=== PATIENT | male | born 1955 | race Caucasian/White ===

== ENCOUNTER 2021-04-27 12:36 | Day surgery (SDC) | payer OTHER ==
[~2021-04-27] VITALS: Ht 177.8 cm; Wt 74.6 kg
[2021-04-27 13:26] VITALS: BP 162/103
[2021-04-27] MEDS ORDERED: CHLORHEXIDINE 15 ML UDC ONE (13:29)
[2021-04-27] MEDS ORDERED: CHLORHEXIDINE 15 ML UDC PO ONE (13:30)
[2021-04-27] MEDS ORDERED: LACTATED RINGERS 1,000 ML IV SCH (13:30)
[2021-04-27 13:50] VITALS: BP 155/98
[2021-04-27] MEDS ORDERED: MIDAZOLAM 1 MG/ML, 2ML ONE (14:19)
[2021-04-27] MEDS ORDERED: FENTANYL PF 100 MCG/2ML ONE (14:19)
[2021-04-27] MEDS ORDERED: ONDANSETRON 2MG/ML, 2ML ONE (14:32)
[2021-04-27] MEDS ORDERED: SUCCINYLCHOLINE 20 MG/ML, 10ML ONE (14:32)
[2021-04-27] MEDS ORDERED: DEXAMETHASONE 4 MG/ML, 1ML ONE (14:32)
[2021-04-27] MEDS ORDERED: PHENYLEPHRINE 10 MG/ML ONE (14:32)
[2021-04-27] MEDS ORDERED: ROCURONIUM 10 MG/ML,10ML ONE (14:32)
[2021-04-27] MEDS ORDERED: PROPOFOL 10 MG/ML, 50ML ONE (14:32)
[2021-04-27] MEDS ORDERED: SUGAMMADEX 200 MG/2 ML IVPush ONE (14:32)
[2021-04-27] MEDS ORDERED: HYDROmorphone 1 MG/ML, 1ML INJ ONE (14:41)
[2021-04-27] MEDS ORDERED: DIAZEPAM 5 MG/ML, 2ML IVPush PRN (15:00)
[2021-04-27] MEDS ORDERED: LABETALOL 5MG/ML, 20ML IV PRN (15:00)
[2021-04-27] MEDS ORDERED: HALOPERIDOL 5 MG/ML IV PRN (15:00)
[2021-04-27] MEDS ORDERED: ACETAMINOPHEN 325 MG TABLET PO PRN (15:00)
[2021-04-27] MEDS ORDERED: OXYcodone 5 MG/5 ML ORAL.SOL UDC PO PRN (15:00)
[2021-04-27] MEDS ORDERED: METOCLOPRAMIDE 5 MG/ML, 2ML IVPush PRN (15:00)
[2021-04-27] MEDS ORDERED: METOPROLOL 1 MG/ML, 5ML IV PRN (15:00)
[2021-04-27] MEDS ORDERED: PROMETHAZINE 25 MG/ML, 1ML IVPush PRN (15:00)
[2021-04-27] MEDS ORDERED: DIPHENHYDRAMINE 50 MG/ML, 1ML IVPush PRN (15:00)
[2021-04-27] MEDS ORDERED: ONDANSETRON 2MG/ML, 2ML IVPush PRN (15:00)
[2021-04-27] MEDS ORDERED: MEPERIDINE/PF 25MG/0.5ML IVPush PRN (15:00)
[2021-04-27] MEDS ORDERED: hydrALAzine 20 MG/ML, 1ML IV PRN (15:00)
[2021-04-27] MEDS ORDERED: FENTANYL PF 100 MCG/2ML IV PRN (15:00)
[2021-04-27] MEDS ORDERED: EPHEDRINE 50 MG/ML, 1ML IVPush PRN (15:00)
[2021-04-27] MEDS ORDERED: HYDROmorphone 1 MG/ML, 1ML INJ IVPush PRN (15:00)
== END 2021-04-27 17:25 | disposition home or self-care (01) ==
LOC: OUT 12:36 → EDSTATUS 14:30 → OUT 17:25
PROVIDERS: ATTEND Internal Medicine
DX: R91.8 Other nonspecific abnormal finding of lung field (principal); C77.1 Secondary and unspecified malignant neoplasm of intrathoracic lymph nodes; F41.9 Anxiety disorder, unspecified; Z20.822 Contact with and (suspected) exposure to COVID-19; Z79.891 Long term (current) use of opiate analgesic; Z79.899 Other long term (current) drug therapy; Z87.891 Personal history of nicotine dependence; Z85.46 Personal history of malignant neoplasm of prostate; Z90.79 Acquired absence of other genital organ(s)
CPT/HCPCS: 31653; 88172; 88173; 88177; 88305; 88341; 88342; 93005; J0330; J1100; J1170; J2250; J2370; J2405; J2704; J3010; J7120; U0003; U0005; 31622

== ENCOUNTER → 2021-05-09 | Outpatient (CLI) | payer OTHER | END | disposition home or self-care (01) | LOC: ROC 10:20 | PROVIDERS: ATTEND Radiology Radiation Oncology | DX: C34.31 Malignant neoplasm of lower lobe, right bronchus or lung (principal); F41.9 Anxiety disorder, unspecified; Z79.891 Long term (current) use of opiate analgesic; Z79.899 Other long term (current) drug therapy; Z87.891 Personal history of nicotine dependence; Z85.46 Personal history of malignant neoplasm of prostate | CPT/HCPCS: 99214; G0463 ==

== ENCOUNTER 2021-08-10 08:22 | Outpatient (CLI) | payer OTHER | END 2021-08-10 23:59 | disposition home or self-care (01) | LOC: ROC 08:22 | PROVIDERS: ATTEND Radiology Radiation Oncology | DX: Z08 Encounter for follow-up examination after completed treatment for malignant neoplasm (principal); Z85.118 Personal history of other malignant neoplasm of bronchus and lung; F41.9 Anxiety disorder, unspecified; Z79.891 Long term (current) use of opiate analgesic; Z79.899 Other long term (current) drug therapy; Z87.891 Personal history of nicotine dependence | CPT/HCPCS: 99212; G0463 ==